=== PATIENT | female | born 1995 | race Hispanic/Latino ===

== ENCOUNTER 2022-08-27 09:12 | Emergency (ER) | payer OTHER, SELFPAY ==
[2022-08-27 09:45] VITALS: BP 124/78; PULSE 81; RESP 18; TEMP 37.1; O2SAT 100
--- NOTE | 2022-08-27 10:03 | ED.URI ---
HPI - URI/Sore Throat General Chief Complaint: Upper Respiratory Infection Stated Complaint: Sore Throat Time Seen by Provider: 08/27/22 10:03 History of Present Illness HPI Narrative: 26-year-old female presents for complaint of sore throat for 3 days. Endorses she started with a cough, left ear pain, and body aches yesterday. She denies shortness of breath, wheezing, nausea, vomiting, diarrhea, fevers or chills. She is not taking anything for symptoms. She denies sick contacts. Related Data Home Medications Medication Instructions Recorded Confirmed norelgestromin 150 mcg-e.estradiol 1 patch transdermal DIRECTED 08/27/22 08/27/22 35 mcg/24 hr weekly transderm patch (Zafemy) Allergies Allergy/AdvReac Type Severity Reaction Status Date / Time No Known Allergies Allergy Mild Verified 08/27/22 09:39 Review of Systems Review of Systems: CONSTITUTIONAL: Denies body aches, fever, chills, or sweats. EYES: Denies visual changes, redness, or discharge. ENT: per HPI CARDIOVASCULAR: Denies chest pain, palpitations, or edema. RESPIRATORY: Denies dyspnea. GASTROINTESTINAL: Denies abdominal pain, nausea, vomiting, or diarrhea. SKIN: Denies rash, itching, or wounds. MUSCULOSKELETAL: Denies back pain, joint pain NEUROLOGIC: Denies headache Exam Narrative: GENERAL: well-appearing, no acute distress. EYES: conjunctivae clear ENT: Mucous membranes moist. TMs pearly broussard with normal light reflex bilaterally; no tragal tenderness. Oropharynx erythematous without lesions. No drooling, no hoarseness, no trismus, uvula midline. No tripod positioning, hot potato voice, or soft palate swelling. NECK: Supple. No lymphadenopathy CHEST: Clear to auscultation, breath sounds equal. No respiratory distress, speaks in full sentences. HEART: Regular rate and rhythm. No murmur heard. SKIN: Warm, dry, no rash. NEURO: Alert and oriented x3. Course Course Emergency Course: Patient is aware of diagnosis, understands and agrees to treatment plan. Anticipatory guidance given. Patient agrees to follow-up as directed and is aware of reasons to seek care at the emergency department. Portions of this record may have been created with voice recognition software Level of Care: Express Care Visit Vital Signs Vital signs: Vital Signs Temperature 98.7 F 08/27/22 09:45 Pulse Rate 81 08/27/22 09:45 Respiratory Rate 18 08/27/22 09:45 Blood Pressure 124/78 08/27/22 09:45 Pulse Oximetry 100 08/27/22 09:45 Oxygen Delivery Room Air 08/27/22 09:45 Temperature 98.7 F 08/27/22 09:45 Pulse Rate 81 08/27/22 09:45 Respiratory Rate 18 08/27/22 09:45 Blood Pressure 124/78 08/27/22 09:45 Pulse Oximetry 100 08/27/22 09:45 Oxygen Delivery Room Air 08/27/22 09:45 MDM - URI/Sore Throat MDM Narrative Medical decision making narrative: Negative strep, flu, COVID results reviewed with pt. Advise supportive treatments. Patient is appropriate for outpatient treatment and follow-up. Differential Diagnosis Differential diagnosis: Likely upper respiratory infection, viral infection, influenza and pharyngitis Lab Data Labs: Influenza A Screen Negative Reference Range: Negative Influenza B Screen Negative Reference Range: Negative Strep Screen Presumptive Negative *(Reference Range: Negative)* Discharge Plan Discharge Clinical Impression: Upper respiratory infection Qualifiers: URI type: unspecified URI Qualified Code(s): J06.9 - Acute upper respiratory infection, unspecified Patient Disposition: Home, Self-Care Condition: Stable Instructions: Upper Respiratory Infection (ED) Additional Instructions: Influenza and covid negative Rapid strep swab was negative today You will be notified in a few days if the c
== END 2022-08-27 10:40 | disposition home or self-care (01) ==
PROVIDERS: Emergency Provider Nurse Practitioner Family; PCP Registered Nurse
DX: J06.9 Acute upper respiratory infection, unspecified (principal); Z20.822 Contact with and (suspected) exposure to COVID-19
CPT/HCPCS: 87081; 87426; 87804; 87880; 99213; C9803; G0463

== ENCOUNTER 2023-09-08 08:34 | Emergency (ER) | payer OTHER, SELFPAY ==
--- NOTE | 2023-09-08 08:35 | ED.URI ---
HPI - URI/Sore Throat General Chief Complaint: Upper Respiratory Infection Stated Complaint: Cough Time Seen by Provider: 09/08/23 08:35 Source: patient Mode of arrival: ambulatory Limitations: no limitations History of Present Illness HPI Narrative: Danae is a 27-year-old female patient presenting to the clinic today with complaints of a cough x1 week. She reports she does have some mild shortness of breath when she is in a coughing fit. Also reports some pain in her mid back when she is coughing. Denies any fever or chills currently. Symptoms started with runny nose and congestion. She reports that the runny nose has somewhat improved but now has the lingering nonproductive cough MD elicited complaint: cough Related Data Allergies Allergy/AdvReac Type Severity Reaction Status Date / Time No Known Allergies Allergy Mild Verified 08/27/22 09:39 Review of Systems Review of Systems: Pertinent positives per HPI. Patient denies any fever, chills, rash, headache, visual changes, dizziness, sore throat, shortness of breath, chest pain, palpitations, nausea, vomiting, diarrhea, constipation, abdominal pain, or any urinary issues. PMFSH Comments At the time of my signature, I reviewed and agree with the nursing past medical, surgical, social, and family history. There is no relevant family history pertinent to the patient complaint. Exam Narrative: General: Well-developed, well nourished, in no apparent distress Head: Normocephalic, atraumatic Eyes: Pupils equally round and reactive to light bilaterally, EOM intact, sclera and conjunctive clear, no discharge, lids normal Ears: TMs intact and clear, ear canals clear, no drainage, grossly hearing normal. Nose: Nares patent, clear nasal discharge, no inflammation, no sinus tenderness. Mouth: Oral pharynx without lesions or masses, good dentition, MMM. Postnasal drip Neck: Supple, trachea midline, no enlargement of anterior or posterior cervical nodes, no thyroid masses or goiter palpable. Cardio: Regular rate and rhythm, s1 and s2 normal, no murmur appreciated. Resp: Clear to auscultation bilaterally, no rhonchi, rales, wheezing or rubs Course Course Emergency Course: Portions of this record may have been created with voice recognition software. Level of Care: Express Care Visit Vital Signs Vital signs: Vital signs reviewed MDM - URI/Sore Throat MDM Narrative Medical decision making narrative: At the time of visit patient is resting comfortably on the exam table. Patient appears to be nontoxic. I suspect the patient has URI with postnasal drip. Prescription for prednisone and Tessalon Perles was sent to the pharmacy. Supportive measures were discussed with the patient and they voiced understanding discharge instructions and agrees to treatment plan. Return precautions reviewed Differential Diagnosis Differential diagnosis: Likely upper respiratory infection, otitis media, sinusitis, viral infection, bronchitis, influenza, pharyngitis and other (COVID) Discharge Plan Discharge Clinical Impression: PND (post-nasal drip) Upper respiratory infection Qualifiers: URI type: unspecified URI Qualified Code(s): J06.9 - Acute upper respiratory infection, unspecified Patient Disposition: Home, Self-Care Condition: Stable Instructions: Antibiotic Form, Upper Respiratory Infection (ED), Postnasal Drip (DC) Additional Instructions: Take prescription medications only as prescribed-prednisone and Tessalon Perles Increase fluids and stay well hydrated Tylenol/motrin for pain/fever Flonase and OTC antihistamines as directed Vicks vapor rub to open sinuses Sinus rinses for congestion Cepacol spray, cough drops, throat lozenges, warm tea with honey/lemon, gargle salt water to soothe throat BRAT diet for diarrhea Clear liquids x 24 hours then advance as tolerated for nausea/vomiting Go to the ED if you develop a worsening in your condition- hig
[2023-09-08 08:44] VITALS: BP 108/48; PULSE 68; RESP 20; TEMP 36.6; O2SAT 100
== END 2023-09-08 08:58 | disposition home or self-care (01) ==
LOC: EXPCOLL 08:39
PROVIDERS: Emergency Provider Nurse Practitioner Family
DX: R09.82 Postnasal drip (principal); J06.9 Acute upper respiratory infection, unspecified
CPT/HCPCS: 99213; G0463

== ENCOUNTER 2024-01-21 17:06 | Emergency (ER) | payer OTHER, SELFPAY ==
--- NOTE | ~2024-01-21 | XR_ITS ---
EXAM: XR knee RT min 4V, XR knee LT min 4V DATE: 01/21/2024 18:11 HISTORY: knee pain no injury right hurts worse in anterior region . COMPARISON: None available. FINDINGS: Normal mineralization. No fracture or dislocation. No lytic or blastic lesion. Mild tricom partmental osteoarthritis. Small bilateral joint effusions. No erosion or periosteal change. Soft tis sues within normal limits. IMPRESSION: No acute osseous finding in the bilateral knees. Reviewed, dictated and finalized at location K. IMPRESSION: No acute osseous finding in the bilateral knees.
[2024-01-21 17:21] VITALS: BP 126/72; PULSE 66; RESP 14; TEMP 36.5; O2SAT 100
--- NOTE | 2024-01-21 17:46 | ED.GENADULT ---
HPI - General Adult General Chief complaint: Extremity Problem,Nontraumatic <Jaye Tabor CONSTRUCTION PROJECT ASSISTANT - Last Filed: 01/21/24 17:49> Stated complaint: BL knee pain. Denies injury/trauma <Jaye Tabor CONSTRUCTION PROJECT ASSISTANT - Last Filed: 01/21/24 17:49> Time Seen by Provider: 01/21/24 17:46 <Jaye Gilman January, CONSTRUCTION PROJECT ASSISTANT - Last Filed: 01/21/24 17:49> Focused HPI: Danae Daniels is a 28 y/o female who presents with reports of having bilateral knee pain for years that has been off and on. She states that she started running recently and started to have increased bilateral knee pain and she continued thinking it would be ok, but now having constant pain to her right knee and intermittent pain to her left knee. Pain is worse with movement. GENERAL: Well-appearing, well-nourished, and in no acute distress. HEAD: Normocephalic, atraumatic. CHEST: Clear to auscultation. ?No respiratory distress. HEART: Regular rate and rhythm.? NEURO: ?Alert and oriented x3. Patient screened in triage and initial orders placed.? ?Additional care and disposition to be based upon?diagnostic testing and treatment. <Jaye Tabor, CONSTRUCTION PROJECT ASSISTANT - Last Filed: 01/21/24 17:49> History of Present Illness HPI narrative: Agree with HPI <Hector Fischer MD - Last Filed: 01/21/24 20:37> Related Data Allergies/adverse reactions: Allergies Allergy/AdvReac Type Severity Reaction Status Date / Time No Known Allergies Allergy Mild Verified 01/21/24 17:07 <Jaye Tabor, CONSTRUCTION PROJECT ASSISTANT - Last Filed: 01/21/24 17:49> Review of Systems Cardiovascular: Cardiovascular: Reports no additional cardiovascular complaints <Hector Fischer MD - Last Filed: 01/21/24 20:37> Respiratory: Respiratory: Reports no additional respiratory complaints <Hector Fischer MD - Last Filed: 01/21/24 20:37> Musculoskeletal: Musculoskeletal: Reports arthralgias, Denies joint swelling and Denies muscle cramps <Hector Fischer MD - Last Filed: 01/21/24 20:37> Neurologic: Reports system reviewed and no additional complaints, except as documented <Hector Fischer MD - Last Filed: 01/21/24 20:37> PMFSH Past Medical History Medical History: Medical History (Updated 01/21/24 @ 20:35 by Hector Fischer MD) Healthy female adult <Jaye Tabor CONSTRUCTION PROJECT ASSISTANT - Last Filed: 01/21/24 17:49> Surgical History Surgical History: Surgical History (Updated 01/21/24 @ 20:35 by Hector Fischer MD) No history of previous surgery <Jaye Tabor CONSTRUCTION PROJECT ASSISTANT - Last Filed: 01/21/24 17:49> Exam Narrative: GENERAL: Well-appearing, well-nourished, and in no acute distress. HEAD: Normocephalic, atraumatic. EXTREMITIES: Normal range of motion. No edema. Grinding of left patella with extension SKIN: Warm, dry, no rash. NEURO: Alert and oriented x3. PSYCH: Normal mood and affect. <Hector Fischer MD - Last Filed: 01/21/24 20:37> Course Course Emergency Course: Patient resting comfortably. Gave counseling recommend follow-up PCP. Will start on b.i.d. naproxen. <Hector Fischer MD - Last Filed: 01/21/24 20:37> Vital Signs Vital signs: Vital Signs Temperature 97.7 F 01/21/24 17:21 Pulse Rate 66 01/21/24 17:21 Respiratory Rate 14 01/21/24 17:21 Blood Pressure 126/72 01/21/24 17:21 Pulse Oximetry 100 01/21/24 17:21 Oxygen Delivery Room Air 01/21/24 17:21 Temperature 97.7 F 01/21/24 17:21 Pulse Rate 66 01/21/24 17:21 Respiratory Rate 14 01/21/24 17:21 Blood Pressure 126/72 01/21/24 17:21 Pulse Oximetry 100 01/21/24 17:21 Oxygen Delivery Room Air 01/21/24 17:21 <Jaye Tabor CONSTRUCTION PROJECT ASSISTANT - Last Filed: 01/21/24 17:49> Vital Signs Temperature 97.7 F 01/21/24 17:21 Pulse Rate 66 01/21/24 17:21 Respiratory Rate 14 01/21/24 17:21 Blood Pressure 126/72 01/21/24 17:21 Pulse Oximetry 100 01/21/24 17:21 Oxygen Delivery Room Air 01/21/24 17:21 Temperature 97.7 F 01/21/24 17:21 Pulse Rate 66 01/21/24 17:21 Res
[2024-01-21] MEDS: ACETAMINOPHEN 500 MG TABLET 1000 MG PO (19:50)
[2024-01-21] MEDS: IBUPROFEN 600 MG TABLET PO (19:50)
[2024-01-21 20:43] VITALS: BP 120/74; PULSE 67; RESP 15; TEMP 36.4; O2SAT 99
== END 2024-01-21 20:44 | disposition home or self-care (01) ==
LOC: ANHED 20:39
PROVIDERS: Emergency Provider Emergency Medicine; PCP Nurse Practitioner
DX: M25.562 Pain in left knee (principal); M25.561 Pain in right knee
CPT/HCPCS: 73564; 99284; A9270

== ENCOUNTER 2024-01-29 13:28 | Emergency (ER) | payer OTHER, SELFPAY ==
--- NOTE | ~2024-01-29 | XR_ITS ---
EXAM: XR knee RT 3V DATE: 01/29/2024 15:12 HISTORY: pain worsening no injury had xrays last sunday on R knee . COMPARISON: 01/21/2024. FINDINGS: Normal mineralization. No fracture or dislocation. No lytic or blastic lesion. Mild tricom partmental osteoarthritis. Small volume joint fluid. No erosion or periosteal change. Soft tissues wi thin normal limits. IMPRESSION: No acute osseous finding in the right knee. Small right knee joint effusion. Given persis tent symptoms, consider referral for nonemergent but timely MRI of the knee. Reviewed, dictated and finalized at location K. IMPRESSION: No acute osseous finding in the right knee. Small right knee joint effusion. Given persistent symptoms, consider referral for nonemergent but time ly MRI of the knee.
--- NOTE | ~2024-01-29 | US_ITS ---
EXAMINATION: US venous doppler LE RT DATE: 01/29/2024 15:08 INDICATION: swelling and pain in the lower limb. TECHNIQUE: Grayscale images without and with compression and Doppler images of the right lower extrem ity veins were obtained. COMPARISON: None FINDINGS: The right common femoral vein, profunda (deep) femoral vein, femoral vein, popliteal vein, peroneal v ein, posterior tibial veins, gastrocnemius vein, and greater saphenous vein are patent. IMPRESSION: Patent right lower extremity veins. No evidence of deep venous thrombosis. Reviewed, dictated and finalized at location K.
[2024-01-29 13:29] VITALS: BP 107/88; PULSE 66; RESP 17; TEMP 36.6; O2SAT 100
--- NOTE | 2024-01-29 14:41 | ED.GENADULT ---
HPI - General Adult General Chief complaint: Extremity Injury, Lower <Jaye Gilman January, SCRIPT COORDINATOR - Last Filed: 01/29/24 14:45> Stated complaint: R knee pain <Jaye Gilman January, SCRIPT COORDINATOR - Last Filed: 01/29/24 14:45> Time Seen by Provider: 01/29/24 14:41 <Jaye Gilman January,N - Last Filed: 01/29/24 14:45> Focused HPI: Danae Daniels is a 28 y/o female who presents with reports of being here 1 week ago for bilateral knee pain. She states that she had x rays that were normal and she took her Naproxen that helped but now she is having increased pain and swelling to her right knee and she cannot get in to see her PCP until Mid January. She did take 2 naproxen this AM Pain to right knee is at an 8 out of 10 and her left one has improved and now at a 3. GENERAL: Well-appearing, well-nourished, and in no acute distress. HEAD: Normocephalic, atraumatic. CHEST: Clear to auscultation. ?No respiratory distress. HEART: Regular rate and rhythm.? NEURO: ?Alert and oriented x3. Patient screened in triage and initial orders placed.? ?Additional care and disposition to be based upon?diagnostic testing and treatment. <Jaye Gilman January, - Last Filed: 01/29/24 14:45> History of Present Illness HPI narrative: 28-year-old female presents to emergency department for acute on chronic right knee pain. Patient states she has had intermittent bilateral knee pain since she was a child. States approximately 1 week ago she began noticing increasing pain in the right knee which prompted her to come to the ED on 01/21/2024. She had negative x-rays of her bilateral knees and was prescribed naproxen and discharged home with PCP follow-up. States she has an appoint with her PCP in 1 week presented ABD to persistent pain. States the naproxen is not helping her pain. She states that her pain is worse when she is running on the treadmill and she notices a clicking sound. States she notices some edema to her right knee. She denies recent injury or trauma, denies edema to the remainder lower extremity, denies hip pain or ankle pain,, fevers. Patient denies possibility of . <Gilda Zamorano PA-C - Last Filed: 01/29/24 17:26> Related Data Allergies/adverse reactions: Allergies Allergy/AdvReac Type Severity Reaction Status Date / Time No Known Allergies Allergy Mild Verified 01/29/24 15:13 <Jaye Tabor SCRIPT COORDINATOR - Last Filed: 01/29/24 14:45> Review of Systems Review of Systems: CONSTITUTIONAL: Denies fever, chills, or sweats. EYES: Denies visual changes, redness, or discharge. ENT: Denies rhinorrhea, congestion, sore throat, or otalgia. CARDIOVASCULAR: Denies chest pain, palpitations, or edema. RESPIRATORY: Denies cough or dyspnea. GASTROINTESTINAL: Denies abdominal pain, nausea, vomiting, or diarrhea. GENITOURINARY: Denies dysuria or hematuria. SKIN: Denies rash or itching. MUSCULOSKELETAL: See HPI NEUROLOGIC: Denies headache, numbness, or weakness. PSYCHIATRIC: Denies anxiety or depression. <Gilda Zamorano PA-C - Last Filed: 01/29/24 17:26> [facility] Past Medical History Medical History: Medical History Healthy female adult <Jaye Tabor - Last Filed: 01/29/24 14:45> Surgical History Surgical History: Surgical History No history of previous surgery <Jaye Gilman January, - Last Filed: 01/29/24 14:45> Exam Narrative: GENERAL: Well-appearing, well-nourished, and in no acute distress. HEAD: Normocephalic, atraumatic. NECK: Supple. CHEST: Clear to auscultation. No respiratory distress. HEART: Regular rate and rhythm. No murmur heard. Normal peripheral pulses. EXTREMITIES: RLE: No edema, warmth or erythema to the knee. No tenderness throughout the knee, hip, tib-fib or ankle. Crepitus with movement of the knee. Full active and passive range of motion. Negative anterior-posterior drawer, no laxity w
[2024-01-29 15:27] LABS: Basophils Absolute Auto 0.1 K/mm3 (0.0-0.1); Basophils Percent Auto 0.5 % (0.2-1.2); Eosinophils Absolute Auto 0.3 K/mm3 (0-0.3); Eosinophils Percent Auto 2.9 % (0-4.4); Hematocrit 40.8 % (37.0-47.0); Hemoglobin 13.6 g/dL (12.0-15.0); Immature Granulocyte Absolute 0.03 K/mm3 (0.00-0.031); Immature Granulocyte Percent A 0.3 % (0-0.5); Lymphocytes Absolute Auto 2.93 K/mm3 (0.9-3.2); Lymphocytes Percent Auto 29.5 % (18.3-44.2); Mean Corpuscular HGB Conc 33.3 g/dl (32-36); Mean Corpuscular Hemoglobin 30.7 pg (26-34); Mean Corpuscular Volume 92.1 fl (80-100); Mean Platelet Volume 9.5 fl (7.4-10.4); Monocytes Absolute Auto 0.7 K/mm3 (0.1-0.6); Monocytes Percent Auto 7.3 % (2.6-8.5); Neutrophils Absolute Auto 5.9 K/mm3 (1.3-6.7); Neutrophils Percent Auto 59.5 % (45.5-73.1); Platelet Count Result 277 k/mm3 (150-375); Red Blood Count 4.43 M/mm3 (4.2-5.4); Red Cell Distribution Width 12.7 % (11.5-14.5); White Blood Count 9.9 K/mm3 (4.5-10.0)
[2024-01-29 15:41] LABS: Anion Gap 8 mmol/L (4-12); Blood Urea Nitrogen 17 mg/dL (7-17); Calcium 8.9 mg/dL (8.4-10.2); Carbon Dioxide 22 mmol/L (22-30); Chloride 107 mmol/L (98-107); Estimated CRCL calculation 119 ml/min; Estimated Glomerular Filt Rate > 60; Glucose 97 mg/dL (65-110); Potassium 4.1 mmol/L (3.4-5.0); Sodium 137 mmol/L (137-145)
[2024-01-29] MEDS: IBUPROFEN 400 MG TABLET 800 MG PO (17:29)
== END 2024-01-29 17:40 | disposition home or self-care (01) ==
LOC: ANHED 17:26
PROVIDERS: Nurse Practitioner Family; Emergency Provider Physician Assistant; PCP Nurse Practitioner
DX: M25.561 Pain in right knee (principal); M25.461 Effusion, right knee; G89.29 Other chronic pain
CPT/HCPCS: 36415; 73562; 80048; 85025; 93971; 99284; A9270

== ENCOUNTER 2025-01-10 10:07 | Emergency (ER) | payer OTHER, SELFPAY ==
[2025-01-10 10:18] VITALS: BP 107/55; PULSE 55; RESP 19; TEMP 36.6; O2SAT 100
--- NOTE | 2025-01-10 10:22 | ED.URI ---
HPI - URI/Sore Throat General Chief Complaint: Upper Respiratory Infection Stated Complaint: Cough Time Seen by Provider: 01/10/25 10:20 Source: patient Mode of arrival: ambulatory Limitations: no limitations History of Present Illness HPI Narrative: Danae is a 29-year-old female patient presenting to the clinic today with complaints of a cough and nasal congestion x1 week. He denies any fevers, chills, body aches. No chest pain or shortness of breath. She does not have any history of asthma or COPD. Nonsmoker. Cough is worse at night. Mildly productive at times with some clear phlegm. Has tried taking NyQuil and drinking tea Related Data Allergies Allergy/AdvReac Type Severity Reaction Status Date / Time No Known Allergies Allergy Mild Verified 01/10/25 10:17 Review of Systems Review of Systems: Pertinent positives per HPI. Patient denies any fever, chills, rash, headache, visual changes, dizziness, cough, shortness of breath, chest pain, palpitations, nausea, vomiting, diarrhea, constipation, abdominal pain, or any urinary issues. [facility] Past Medical History Medical History Healthy female adult Surgical History Surgical History No history of previous surgery Social History Social History Smoking status: Never smoker Alcohol intake: current Alcohol use details: socially Substance use type: does not use Do You Feel Safe in your Home?: Yes Lack of Transportation: No Lack of Food: Never True Current Housing: I Have Housing Concerned About Future Housing: No Difficulty Paying Gas/Electric Bills: No Difficulty Paying for Meds: No Currently Unemployed: No Education: High School Diploma/GED Difficulty w/ Childcare or Family Care: No Living arrangements: with family Occupation/Education: occupation Additional occupation/education comments: sales Gender identity (if verbalized by the patient): Female Comments At the time of my signature, I reviewed and agree with the nursing past medical, surgical, social, and family history. There is no relevant family history pertinent to the patient complaint. Exam Narrative: General: Well-developed, well nourished, in no apparent distress Head: Normocephalic, atraumatic Eyes: Pupils equally round and reactive to light bilaterally, EOM intact, sclera and conjunctive clear, no discharge, lids normal Ears: TMs intact and clear, ear canals clear, no drainage, grossly hearing normal. Nose: Nares patent, clear nasal discharge, no inflammation, no sinus tenderness. Mouth: Oral pharynx without lesions or masses, good dentition, MMM. Postnasal drip Neck: Supple, trachea midline, no enlargement of anterior or posterior cervical nodes, no thyroid masses or goiter palpable. Cardio: Regular rate and rhythm, s1 and s2 normal, no murmur appreciated. Resp: Clear to auscultation bilaterally, no rhonchi, rales, wheezing or rubs Course Course Emergency Course: Portions of this record may have been created with voice recognition software. Level of Care: Express Care Visit Vital Signs Vital signs: Vital Signs Temperature 36.6 C 01/10/25 10:18 Pulse Rate 55 L 01/10/25 10:18 Respiratory Rate 19 01/10/25 10:18 Blood Pressure 107/55 L 01/10/25 10:18 Pulse Oximetry 100 01/10/25 10:18 Oxygen Delivery Room Air 01/10/25 10:18 Temperature 36.6 C 01/10/25 10:18 Pulse Rate 55 L 01/10/25 10:18 Respiratory Rate 19 01/10/25 10:18 Blood Pressure 107/55 L 01/10/25 10:18 Pulse Oximetry 100 01/10/25 10:18 Oxygen Delivery Room Air 01/10/25 10:18 Vital signs reviewed MDM - URI/Sore Throat MDM Narrative Medical decision making narrative: At the time of visit patient is resting comfortably on the exam table. Patient appears to be nontoxic. Plan: I suspect patient has allergic rhinitis/postnasal drip. Prescription for Tessalon Perles was sent to the pharmacy. Recommend using Flonase and [id number] antihistamine such as Zyrtec or Claritin. Supportive measures were discussed with the patient and they voiced understanding discharge instructions and agrees to treatment plan. Return precautions reviewed Differential Diagnosis Differential diagnosis: Likely upper respiratory infection, otitis media, sinusitis, viral infection, bronchitis, influenza, pharyngitis and other (COVID, allergic rhinitis, postnasal drip) Discharge Plan Discharge Clinical Impression: Allergic rhinitis Qualifiers: Allergic rhinitis trigger: unspecified Allergic rhinitis seasonality: unspecified Qualified Code(s): J30.9 - Allergic rhinitis, unspecified Patient Disposition: Home Condition: Stable Instructions: Antibiotic Form, Allergies (ED), Postnasal Drip (DC) Additional Instructions: Take prescription medications only as prescribed-Tessalon Perles Increase fluids and stay well hydrated Tylenol/motrin for pain/fever Flonase and OTC antihistamines as directed Vicks vapor rub to open sinuses Sinus rinses for congestion Cepacol spray, cough drops, throat lozenges, warm tea with honey/lemon, gargle salt water to soothe throat BRAT diet for diarrhea Clear liquids x 24 hours then advance as tolerated for nausea/vomiting Go to the ED if you develop a worsening in your condition- high fever not controlled by Tylenol or Motrin, dehydration, weakness, lethargy, shortness of breath, or chest pain. Follow up with your PCP in 3-5 days if symptoms persist. Patient Language: Slovak Prescriptions: New benzonatate 200 mg capsule 200 mg PO TID 7 Days Qty: 21 0RF Follow-up/Referrals: PHYSICIAN,SOCIAL WORKER AIDE [Primary Care Provider] - Time of Disposition: 10:24 Quality NIHSS Nursing Documentation ED NIHSS nursing documentation: reviewed/agree
== END 2025-01-10 10:30 | disposition home or self-care (01) ==
PROVIDERS: Emergency Provider Nurse Practitioner Family
DX: J30.9 Allergic rhinitis, unspecified (principal)
CPT/HCPCS: 99213; G0463

== ENCOUNTER 2025-07-10 15:20 | Emergency (ER) | payer OTHER, SELFPAY ==
--- NOTE | ~2025-07-10 | XR_ITS ---
EXAMINATION: XR chest 1V portable COMPARISON: No comparisons available. HISTORY: Chest pain FINDINGS: The lungs are clear, no effusion. No pneumothorax. Heart is normal size. Mediastinal and hilar contours are within normal limits. Bony thorax no acute abnormality. Miscellaneous: None Impression: No acute cardiopulmonary abnormality. Reviewed, dictated and finalized at location P. Impression: No acute cardiopulmonary abnormality.
[2025-07-10 15:26] VITALS: BP 124/87; PULSE 67; RESP 20; TEMP 36.4; O2SAT 100
--- NOTE | 2025-07-10 15:26 | ECG_ITS ---
Test Date: 2025-07-10 15:41:36 Measurements Intervals [place] Rate: 66 P: 25 [place]: 137 QRS: -3 QRSD: 80 T: 13 QT: 424 QTc: 445 Interpretive Statements SINUS RHYTHM LOW QRS VOLTAGE IN PRECORDIAL LEADS BORDERLINE T WAVE ABNORMALITY- ANTERIOR LEADS BASELINE ARTIFACT- I, III, AVR, AVL, V5 BORDERLINE ECG No previous ECG available for comparison Electronically Signed On 07-10-2025 15:46:55 CDT by Gilberto Greer D.O.
--- NOTE | 2025-07-10 15:41 | ED.CHESTPAIN ---
HPI - Chest Pain General Chief Complaint: Chest Pain Stated Complaint: Chest pain, SOB, lightheaded Time Seen by Provider: 07/10/25 15:25 Source: patient Mode of arrival: ambulatory Limitations: no limitations History of Present Illness HPI narrative: This is a pleasant 29-year-old female patient with no known past medical history and no chronic medication use who comes to the emergency room with complaints of a 1 hour history of midsternal chest tightness radiating up to the throat. This occurred about an hour and half after eating a salad. Patient states the pain was severe for approximately 20 minutes then started to decrease on its own. Pain then returned and radiated to the jaw on the car ride here. At current time it is decreasing again and is a 3/10. Patient describes the pain as tight. There is no further radiation. There is new associated nausea or diaphoresis but patient states it does make her feel short of breath. Patient states she has never had this pain before. Pain is not reproducible with palpation of the chest wall. She has no other acute complaints at this time. No known ill contacts, recent travel or acute illness symptoms otherwise. Risk Factors Coronary artery disease risk factors: none Thoracic aortic dissection risk factors: none Related Data Allergies Allergy/AdvReac Type Severity Reaction Status Date / Time No Known Allergies Allergy Mild Verified 07/10/25 15:29 Review of Systems Review of Systems: All systems reviewed & are unremarkable except as noted in HPI and below PMFSH Past Medical History Medical History Healthy female adult Surgical History Surgical History No history of previous surgery Social History Social History Smoking status: Never smoker Alcohol intake: current Alcohol use details: socially Substance use type: does not use Do You Feel Safe in your Home?: Yes Lack of Transportation: No Lack of Food: Never True Current Housing: I Have Housing Concerned About Future Housing: No Difficulty Paying Gas/Electric Bills: No Difficulty Paying for Meds: No Currently Unemployed: No Education: High School Diploma/GED Difficulty w/ Childcare or Family Care: No Living arrangements: with family Occupation/Education: occupation Additional occupation/education comments: sales Gender identity (if verbalized by the patient): Female Exam Const: General: healthy appearing, no acute distress and alert Nutritional Appearance: obese Orientation/consciousness: patient oriented x3 Limitations: no limitations HENMT: Head: normal to inspection Ears: external ears normal, TM's normal bilaterally and EAC's normal Face/Nose/Sinus: Normal external nose present and Normal nares present Face and sinus: normal facial exam Throat: posterior oropharynx normal Eyes: Conjunctivae: conjunctivae normal Pupils: Equal, round and reactive pupils present EOM: EOMs intact bilaterally Neck: Neck: normal visual inspection, no lymphadenopathy, meningismus present and no lymphadenopathy noted Chest: Chest palpation & inspection: normal inspection of the chest, no tenderness and No Pacemaker present Resp: Effort & Inspection: normal respiratory effort Auscultation: clear to auscultation bilaterally Cardio: Rate: regular rate Rhythm: regular rhythm Heart sounds: no murmurs GI: GI Palp: Yes Soft to palpation, No Tenderness to palpation present (GI), No Guarding due to palpation present (GI) and No Hernia present Auscultation: normal bowel sounds Back/Spine/Pelvis: Back: no CVA tenderness Skin: General skin exam: normal color Rashes: no rashes Wounds: no wounds Neuro: General: patient oriented x3, moves all extremities, no meningeal signs and no focal motor deficits Cranial nerves: Yes Nystagmus not present Speech: normal speech Gait exam (Neuro): Normal gait present Extrem: General: normal to inspection, no clubbing, cyanosis or edema and no pedal edema Other: Freely and equally moves all extremities well without deficit. Psych: Mental Status: mental status grossly normal Affect: normal affect Course Course Emergency Course: Workup initiated with labs, imaging and EKG. Patient medicated with Protonix, Zofran, morphine and aspirin 324 mg chewable. Low suspicion of ACS as her risk and hx is low. Heart score 0. Patient's labs with concern for potential urinary tract infection and she is given Rocephin IV push, however there are no other signs of acute infection or acute abnormalities. ACS was ruled out with 2- troponins. Discuss these findings with the patient at the bedside. Her symptoms are most likely due to a degree of GERD. Will start patient on Protonix as well as Keflex. Will refer to Dr. Stovall for follow-up from emergency room. Patient discharged at this time in stable condition. Vital Signs Vital signs: Vital Signs Temperature 97.5 F L 07/10/25 15:26 Pulse Rate 67 07/10/25 15:26 Respiratory Rate 20 07/10/25 15:26 Blood Pressure 124/87 07/10/25 15:26 Pulse Oximetry 100 07/10/25 15:26 Oxygen Delivery Room Air 07/10/25 15:26 Temperature 97.5 F L 07/10/25 15:26 Pulse Rate 69 07/10/25 17:01 Respiratory Rate 16 07/10/25 17:01 Blood Pressure 106/69 07/10/25 17:01 Pulse Oximetry 100 07/10/25 17:01 Oxygen Delivery Room Air 07/10/25 15:41 MDM - Chest Pain MDM Narrative Medical decision making narrative: See ED course Differential Diagnosis Differential diagnosis: Likely pneumothorax, stable angina, unstable angina pectoris, atypical chest pain, st elevation myocardial infarction, costochondritis, chest pain and other (Anxiety, GERD) Lab Data 07/10/25 15:38 07/10/25 15:38 Labs: Lab Results 07/10/25 07/10/25 07/10/25 Range/Units 15:26 15:38 15:48 WBC 9.7 (4.5-10.0) K/mm3 RBC 4.50 (4.2-5.4) M/mm3 Hgb 13.7 (12.0-15.0) g/dL Hct 41.5 (37.0-47.0) % MCV 92.2 (80-100) fl MCH 30.4 (26-34) pg MCHC 33.0 (32-36) g/dl RDW 12.8 (11.5-14.5) % Plt Count 316 (150-375) k/mm3 MPV 9.8 (7.4-10.4) fl Immature Gran % (Auto) 0.3 (0-0.5) % Neut % (Auto) 56.5 (45.5-73.1) % Lymph % (Auto) 32.5 (18.3-44.2) % Wallace % (Auto) 7.4 (2.6-8.5) % Eos % (Auto) 2.7 (0-4.4) % Baso % (Auto) 0.6 (0.2-1.2) % Lymph # (Auto) 3.17 (0.9-3.2) K/mm3 Wallace # (Auto) 0.7 H (0.1-0.6) K/mm3 Eos # (Auto) 0.3 (0-0.3) K/mm3 Baso # (Auto) 0.1 (0.0-0.1) K/mm3 Abs Immat Gran (auto) 0.03 (0.00-0.031) K/mm3 Absolute Neuts (auto) 5.5 (1.3-6.7) K/mm3 Absolute Nucleated RBC 0.000 (0.0-0.012) K/mm3 Nucleated RBC % 0.0 (0.0-0.2) % D-Dimer 0.38 (<0.48) ug/mL Sodium 136 L (137-145) mmol/L Potassium 3.9 (3.4-5.0) mmol/L Chloride 103 (98-107) mmol/L Carbon Dioxide 24 (22-30) mmol/L Anion Gap 9 (4-12) mmol/L BUN 14 (7-17) mg/dL Creatinine 0.67 L (0.7-1.0) mg/dL Estim Creat Clear Calc 122 ml/min Estimated GFR > 60 (59 - ) Glucose 96 (65-110) mg/dL Calcium 8.5 (8.4-10.2) mg/dL Total Bilirubin 0.3 (0.2-1.3) mg/dL AST 34 (14-36) U/L ALT 16 (6-35) U/L Alkaline Phosphatase 46 (38-126) U/L Troponin I < 0.012 (0.000-0.034) ng/mL Total Protein 7.7 (6.3-8.2) g/dL Albumin 4.4 (3.5-5.1) g/dL Lipase 81 (23-300) U/L Urine Color Yellow (Yellow) Urine Appearance Cloudy H (Clear) Urine pH >=9.0 H (5.0-9.0) Ur Specific [place] 1.026 (1.001-1.035) Urine Protein Trace (Negative) mg/dL Urine Glucose (UA) Negative (Negative) mg/dL Urine Ketones 1+ H (Negative) mg/dL Ur Blood (Man) Negative (Negative) Urine Nitrate Negative (Negative) Urine Bilirubin Negative (Negative) Urine Urobilinogen 1.0 (<2.0) mg/dL Leukocyte Esterase Rfl 1+ H (Negative) BETHANY/UL Urine RBC 3-5 H (0-2) /hpf Urine WBC 11-20 H (0-3) /hpf Ur Squamous Epith Cells Moderate (Few) /hpf Urine Bacteria 2+ H /hpf Urine Casts 0-2 POC Urine HCG, Qual Negative (Negative) Urine Opiates Screen Negative (Negative) Urine Methadone Screen Negative (Negative) Ur Barbiturates Screen Negative (Negative) Ur Phencyclidine Scrn Negative (Negative) Ur Amphetamine Screen Negative (Negative) U Benzodiazepines Scrn Negative (Negative) Urine Cocaine Screen Negative (Negative) U Cannabinoids Screen Negative (Negative) 07/10/25 Range/Units 17:30 WBC (4.5-10.0) K/mm3 RBC (4.2-5.4) M/mm3 Hgb (12.0-15.0) g/dL Hct (37.0-47.0) % MCV (80-100) fl MCH (26-34) pg MCHC (32-36) g/dl RDW (11.5-14.5) % Plt Count (150-375) k/mm3 MPV (7.4-10.4) fl Immature Gran % (Auto) (0-0.5) % Neut % (Auto) (45.5-73.1) % Lymph % (Auto) (18.3-44.2) % Wallace % (Auto) (2.6-8.5) % Eos % (Auto) (0-4.4) % Baso % (Auto) (0.2-1.2) % Lymph # (Auto) (0.9-3.2) K/mm3 Wallace # (Auto) (0.1-0.6) K/mm3 Eos # (Auto) (0-0.3) K/mm3 Baso # (Auto) (0.0-0.1) K/mm3 Abs Immat Gran (auto) (0.00-0.031) K/mm3 Absolute Neuts (auto) (1.3-6.7) K/mm3 Absolute Nucleated RBC (0.0-0.012) K/mm3 Nucleated RBC % (0.0-0.2) % D-Dimer (<0.48) ug/mL Sodium (137-145) mmol/L Potassium (3.4-5.0) mmol/L Chloride (98-107) mmol/L Carbon Dioxide (22-30) mmol/L Anion Gap (4-12) mmol/L BUN (7-17) mg/dL Creatinine (0.7-1.0) mg/dL Estim Creat Clear Calc ml/min Estimated GFR (59 - ) Glucose (65-110) mg/dL Calcium (8.4-10.2) mg/dL Total Bilirubin (0.2-1.3) mg/dL AST (14-36) U/L ALT (6-35) U/L Alkaline Phosphatase (38-126) U/L Troponin I < 0.012 (0.000-0.034) ng/mL Total Protein (6.3-8.2) g/dL Albumin (3.5-5.1) g/dL Lipase (23-300) U/L Urine Color (Yellow) Urine Appearance (Clear) Urine pH (5.0-9.0) Ur Specific [place] (1.001-1.035) Urine Protein (Negative) mg/dL Urine Glucose (UA) (Negative) mg/dL Urine Ketones (Negative) mg/dL Ur Blood (Man) (Negative) Urine Nitrate (Negative) Urine Bilirubin (Negative) Urine Urobilinogen (<2.0) mg/dL Leukocyte Esterase Rfl (Negative) BETHANY/UL Urine RBC (0-2) /hpf Urine WBC (0-3) /hpf Ur Squamous Epith Cells (Few) /hpf Urine Bacteria /hpf Urine Casts POC Urine HCG, Qual (Negative) Urine Opiates Screen (Negative) Urine Methadone Screen (Negative) Ur Barbiturates Screen (Negative) Ur Phencyclidine Scrn (Negative) Ur Amphetamine Screen (Negative) U Benzodiazepines Scrn (Negative) Urine Cocaine Screen (Negative) U Cannabinoids Screen (Negative) ECG Data EKG #1: Interpretation: Normal sinus rhythm 66 beats per minute without any ectopy or ischemia. Discharge Plan Discharge Clinical Impression: Chest pain, Urinary tract infection, Chest pain due to GERD Patient Disposition: Home Condition: Improved Instructions: Antibiotic Form, Chest Pain (ED), Urinary Tract Infection in Women (DC), Diet for Stomach Ulcers and Gastritis (ED), GERD (Gastroesophageal Reflux Disease) (ED) Additional Instructions: Thank you for allowing us to evaluate you in the emergency room today. Your workup this not show any acute abnormalities relating to heart. Your labs to however show that you have a urinary tract infection and I suspect your symptoms chest pain were caused from reflux. Your being started on an antibiotic for your urinary tract infection and year being started on an antibiotic to decrease the amount of stomach acid their body produces. Please eat a bland diet with nothing hot, spicy, fried or acidic. Your being referred to a primary care provider for follow-up at discharge. If at any point have any new or worsening symptoms please return to the emergency room otherwise follow up as directed. Patient Language: Occitan Prescriptions: New cephalexin 500 mg capsule 500 mg PO Q12H Qty: 20 0RF pantoprazole [Protonix] 40 mg tablet,delayed release (DR/EC) 40 mg PO QAM Qty: 14 0RF No Action benzonatate 200 mg capsule 200 mg PO TID 7 Days Qty: 21 0RF Follow-up/Referrals: PHYSICIAN,[facility] [Non-Staff, Internal Medicine] Nicholas Stovall MD [Physician, Family Practice] Time of Disposition: 18:11 Quality HEART score for chest pain patients History: slightly suspicious ECG: normal Age: < or = to 45 years Risk factors: no risk factors known Troponin: < or = to 1x normal limit Heart score: 0
[2025-07-10 15:49] LABS: Hematocrit 41.5 % (37.0-47.0); Hemoglobin 13.7 g/dL (12.0-15.0); Immature Granulocyte Percent A 0.3 % (0-0.5); Lymphocytes Absolute Auto 3.17 K/mm3 (0.9-3.2); Mean Corpuscular HGB Conc 33.0 g/dl (32-36); Mean Corpuscular Hemoglobin 30.4 pg (26-34); Mean Corpuscular Volume 92.2 fl (80-100); Nucleated Red Blood Cells Absolute Auto 0.000 K/mm3 (0.0-0.012); Nucleated Red Blood Cells Perc 0.0 % (0.0-0.2); Platelet Count Result 316 k/mm3 (150-375); Red Blood Count 4.50 M/mm3 (4.2-5.4); White Blood Count 9.7 K/mm3 (4.5-10.0)
[2025-07-10 15:52] LABS: BEDSIDEPREGUCG Negative (Negative)
[2025-07-10 16:03] LABS: Add Urine Microscopic? YES; Appearance Urine Cloudy (Clear); Glucose Urine UA Negative (Negative); Leukocyte Esterase Ur 1+ LEU/UL (Negative); Nitrate Urine Negative (Negative); Non Pathogenic Casts 0-2; Specific Grav Ur 1.026 (1.001-1.035)
[2025-07-10 16:08] LABS: Alanine Aminotransferase 16 U/L (6-35); Albumin Level 4.4 g/dL (3.5-5.1); Alkaline Phosphatase 46 U/L (38-126); Anion Gap 9 mmol/L (4-12); Aspartate Amino Transferase 34 U/L (14-36); Bilirubin,Total 0.3 mg/dL (0.2-1.3); Blood Urea Nitrogen 14 mg/dL (7-17); Calcium 8.5 mg/dL (8.4-10.2); Carbon Dioxide 24 mmol/L (22-30); Chloride 103 mmol/L (98-107); Estimated CRCL calculation 122 ml/min; Estimated Glomerular Filt Rate > 60; Glucose 96 mg/dL (65-110); Lipase 81 U/L (23-300); Potassium 3.9 mmol/L (3.4-5.0); Sodium 136 mmol/L (137-145); Total Protein 7.7 g/dL (6.3-8.2)
[2025-07-10 16:14] LABS: Cannabinoid Screen Urine Negative (Negative)
[2025-07-10 16:18] LABS: Troponin I < 0.012 ng/mL (0.000-0.034)
[2025-07-10] MEDS: PANTOPRAZOLE SODIUM IV 40 MG VIAL IV PUSH (16:51)
[2025-07-10] MEDS: ASPIRIN 81 MG CHEWABLE TABLET 324 MG PO (16:51)
[2025-07-10] MEDS: cefTRIAXone 2 GM in SODIUM CHLORIDE 0.9% IV 100 ML 200 ML IVPB (16:51)
[2025-07-10 17:01] VITALS: BP 106/69; PULSE 69; RESP 16; O2SAT 100
[2025-07-10 17:31] VITALS: BP 111/74; PULSE 67; RESP 19; O2SAT 100
--- NOTE | 2025-07-10 17:33 | ECG_ITS ---
Test Date: 2025-07-10 17:38:09 Measurements Intervals [place] Rate: 60 P: 29 OK: 139 QRS: -5 QRSD: 79 T: 9 QT: 443 QTc: 444 Interpretive Statements SINUS RHYTHM LOW QRS VOLTAGE IN PRECORDIAL LEADS BORDERLINE T WAVE ABNORMALITY- ANTERIOR LEADS BORDERLINE ECG Compared to ECG 07/10/2025 15:41:36 NO SIGNIFICANT CHANGE Electronically Signed On 07-10-2025 18:35:10 CDT by Gilberto Greer D.O.
[2025-07-10 17:58] LABS: Troponin I < 0.012 ng/mL (0.000-0.034)
[2025-07-10 18:15] VITALS: BP 110/70; PULSE 62; RESP 18
== END 2025-07-10 18:32 | disposition home or self-care (01) ==
PROVIDERS: Emergency Provider Nurse Practitioner Adult Health
DX: K21.9 Gastro-esophageal reflux disease without esophagitis (principal); N39.0 Urinary tract infection, site not specified; R94.31 Abnormal electrocardiogram [ECG] [EKG]
CPT/HCPCS: 36415; 71045; 80053; 80307; 81001; 81025; 83690; 84484; 85025; 85380; 93005; 96365; 99284; A9270; J0696; J2470